=== PATIENT | male | born 1965 | race Caucasian/White ===

== ENCOUNTER 2019-05-27 08:28 | Outpatient (CLI) | payer BC ==
--- NOTE | 2019-05-27 10:26 | MRI ---
MRI Lumbar Spine Noncontrast: HISTORY: Pain COMPARISON: None FINDINGS: Conus medullaris is normal in morphology and terminates at the L1 level. Multilevel bilateral degener ative facet hypertrophy mild to moderate in degree present throughout lumbar spine. No acute marrow edema, compression fracture, or significant subluxation. There is a disc osteophyte at T12-L1 with superimposed right paracentral small disc protrusion produc ing mild effacement of ventral thecal sac. L1-2:No significant stenosis L2-3:No significant stenosis L3-4:Broad-based disc osteophyte with superimposed central disc protrusion producing moderate central canal stenosis and mild bilateral neural foraminal stenosis. L4-5:Right paracentral disc protrusion superimposed upon disc osteophyte with mild to moderate centra l canal stenosis. There is mild bilateral neural foraminal narrowing. L5-S1:Central disc protrusion with mild effacement of ventral thecal sac. No significant foraminal st enosis IMPRESSION: Multilevel degenerative change of the lumbar spine, most pronounced at L3-4. Transcribed Date/Time: 05/27/2019 10:31 AM
--- NOTE | 2019-05-27 10:41 | RAD ---
LUMBAR SPINE 3 VIEWS: Date: 05/27/19 HISTORY: M54.16, lumbar radiculopathy; M54.5, low back pain; left leg, foot, and back pain. FINDINGS: Standing lateral neutral, flexion, and extension views of the lumbar spine are performed. Moderate spondylosis with disc osteophytosis and facet arthrosis. No significant malalignment. No wang dence for abnormal translation between flexion and extension. IMPRESSION: Lumbar spondylosis. No abnormal translation. POS: C
== END 2019-05-27 08:29 | disposition home or self-care (01) ==
LOC: TBSIIMAG 08:28
PROVIDERS: ATTEND Neurological Surgery
DX: M47.26 Other spondylosis with radiculopathy, lumbar region (principal)
CPT/HCPCS: 72100; 72148

== ENCOUNTER 2019-08-23 13:44 | Emergency (ER) | payer BC ==
--- NOTE | 2019-08-23 14:09 | RAD ---
Chest 2 views HISTORY: Chest pain. FINDINGS: Cardiac silhouette and pulmonary vasculature are unremarkable. Mediastinum is midline. No c onfluent airspace consolidation, pneumothorax, or pleural fluid. IMPRESSION: No active cardiopulmonary abnormalities are demonstrated.
[2019-08-23 14:11] LABS: #Eosinphils 0.1 thou/uL (0.0-0.7); #Monocytes 0.2 thou/uL (0.11-0.59); #Neutrophils 2.4 thou/uL (1.40-6.50); %Basophils 0.4 % (0.0-1.0); %Eosinophils 1.4 % (0.0-10.0); %Lymphocytes 27.6 % (21.0-51.0); %Neutrophils 64.5 % (42.0-75.0); Mean Corpuscular HGB CONC 35.6 g/dL (32.0-36.0); Mean Corpuscular Hemoglobin 34.9 pg (27.0-31.0); Mean Corpuscular Volume 98.2 fL (78.0-98.0); Mean Platelet Volume 6.6 fL (7.4-10.4); Platelet Count 96 thou/uL (130-400); RBC Distribution Width 12.7 % (11.5-14.5); White Blood Cell (WBC) Count 3.7 thou/uL (4.8-10.8)
[2019-08-23 14:33] LABS: ALT (SGPT) 19 U/L (8-55); AST (SGOT) 15 U/L (5-34); Albumin 3.6 g/dL (3.5-5.0); Alkaline Phosphatase 74 U/L (40-110); Anion Gap 16 mmol/L (10-20); BUN (Urea Nitrogen) 10 mg/dL (8.4-25.7); Bilirubin, Total 1.1 mg/dL (0.2-1.2); Calc. Creatinine Clearance 0 mL/min (70-130); Calcium 8.6 mg/dL (7.8-10.44); Carbon Dioxide 22 mmol/L (22-29); Chloride 97 mmol/L (98-107); Estimated GFR-MDRD Greater than 90; Globulin 2.1 g/dL (2.4-3.5); Glucose 277 mg/dL (70-105); Lipase 16 U/L (8-78); Protein, Total 5.7 g/dL (6.0-8.3); Sodium 131 mmol/L (136-145)
[2019-08-23 15:39] LABS: Bilirubin Negative (Negative); Blood, Urine Negative (Negative); Clarity Clear (Clear); Glucose, Urine (Dipstick) Greater than 1000 mg/dL (Negative); Leukocyte Negative Leu/uL (Negative); Nitrite Negative (Negative); Protein, Urine (Dipstick) Negative (Neg-Trace); Urobilinogen Normal mg/dL (Less than 2)
[2019-08-23 15:40] LABS: PTT 25.6 SEC (22.9-36.1); Prothrombin Time 13.2 SEC (12.0-14.7)
[2019-08-23 15:49] LABS: Amphetamine Not Detected (NotDetected); Barbiturates Screen Not Detected (NotDetected); Benzodiazepine Screen Not Detected (NotDetected); Cocaine Metabolite Screen Not Detected (NotDetected); Medtox Control Line Valid? VALID (VALID); Medtox Reader # READER 1; Methadone Not Detected (NotDetected); Methamphetamine Not Detected (NotDetected); Opiate Screen Not Detected (NotDetected); Oxycodone Screen Not Detected (NotDetected); Phencyclidine (PCP) Not Detected (NotDetected); THC/Cannabinoid Screen Not Detected (NotDetected); Tricyclic Screen Not Detected (NotDetected)
[2019-08-23 16:19] LABS: HBCM Index 0.08 S/CO (0-0.79); HBSAg Index 0.15 S/CO (0-0.99); HIV (1/2) Antibody/Antigen Non-Reactive (NonReactive); HIV 1/2 INDEX 0.09 S/CO (<1.00); Hep A IgM AB Non-Reactive (NonReactive); Hep A IgM S/CO 0.11 S/CO (0-0.79); Hep B Surf Ag Non-Reactive S/CO (NonReactive); Hep C IgG Ab Non-Reactive (NonReactive); Hep C Index 0.11 S/CO (0-0.79); Hepatitis B Core IgM Abs Non-Reactive (NonReactive)
[2019-08-23] MEDS ORDERED: predniSONE 20 MG TAB ONE (16:23)
[2019-08-25 15:00] LABS: ANA Symphony (Qualitative) Negative (Negative); ANA Symphony (Quantitative) 0.1 Ratio (< 0.7 Negative); dsDNA IgG Antibody 0.7 IU/mL (<10 Negative)
== END 2019-08-23 17:13 | disposition home or self-care (01) ==
LOC: ERS 13:44
DX: D69.6 Thrombocytopenia, unspecified (principal); E11.9 Type 2 diabetes mellitus without complications; F41.9 Anxiety disorder, unspecified; M48.00 Spinal stenosis, site unspecified; F17.210 Nicotine dependence, cigarettes, uncomplicated; Z79.84 Long term (current) use of oral hypoglycemic drugs; Z79.899 Other long term (current) drug therapy
CPT/HCPCS: 36415; 71046; 80053; 80074; 80306; 81003; 82595; 83690; 84484; 85025; 85610; 85652; 85730; 86038; 86140; 86225; 87389; 93005; J7512

== ENCOUNTER 2025-08-06 10:55 | Emergency (ER) | payer OTHER ==
[2025-08-06 11:48] LABS: #Basophils Less than 0.03 10x3/uL (0.0-0.2); #Eosinophils 0.15 10x3/uL (0.0-0.7); #Monocytes 0.33 10x3/uL (0.11-0.59); #Neutrophils 3.03 10x3/uL (1.40-6.50); %Basophils 0.4 % (0.0-1.0); %Eosinophils 3.3 % (0.0-10.0); %Lymphocytes 22.5 % (21.0-51.0); %Monocytes 7.2 % (0.0-10.0); %Neutrophils 66.2 % (42.0-75.0); Hematocrit 38.0 % (42.0-52.0); Hemoglobin 12.5 g/dL (14.0-18.0); Mean Corpuscular Hemoglobin 33.4 pg (27.0-31.0); Mean Corpuscular Volume 101.6 fL (78.0-98.0); Platelet Count 122 10x3/uL (130-400); Red Blood Cell (RBC) Count 3.74 mill/uL (4.70-6.10); White Blood Cell (WBC) Count 4.58 10x3/uL (4.8-10.8)
[2025-08-06 11:52] LABS: INR-International Normal Ratio 1.1; Prothrombin Time 14.5 sec (12.0-14.7)
[2025-08-06 11:53] LABS: PTT 47.5 sec (22.9-36.1)
[2025-08-06 11:54] LABS: ALT (SGPT) 37 U/L (Less than 45); AST (SGOT) 45 U/L (11-34); Albumin 2.6 g/dL (3.1-4.5); Alkaline Phosphatase 177 U/L (40-110); Anion Gap 14 mmol/L (10-20); BUN (Urea Nitrogen) 6 mg/dL (8.4-25.7); Bilirubin, Total 1.5 mg/dL (0.3-1.2); Calc. Creatinine Clearance 0 mL/min (70-130); Calcium 8.5 mg/dL (7.8-10.44); Carbon Dioxide 22 mmol/L (22-29); Chloride 106 mmol/L (98-107); Globulin 3.3 g/dL (2.4-3.5); Glucose 184 mg/dL (70-105); Potassium 3.3 mmol/L (3.5-5.1); Sodium 139 mmol/L (136-145)
== END 2025-08-06 14:28 | disposition home or self-care (01) ==
LOC: ERS 10:55
DX: I82.412 Acute embolism and thrombosis of left femoral vein (principal); E11.9 Type 2 diabetes mellitus without complications; F17.210 Nicotine dependence, cigarettes, uncomplicated; Z79.899 Other long term (current) drug therapy
CPT/HCPCS: 80053; 85025; 85610; 85730; 99283